=== PATIENT | female | born 1975 | race Caucasian/White ===

== ENCOUNTER 2016-09-28 11:20 | Emergency (ER) | payer BC ==
[~2016-09-28] VITALS: Ht 172.7 cm; Wt 59.0 kg
[2016-09-28] MEDS ORDERED: PRED20TA PO (12:33)
[2016-09-28] MEDS ORDERED: DOXY100T9 PO (12:33)
--- NOTE | 2016-09-28 12:36 | PHYS DOC ---
General Chief Complaint: SORE THROAT Stated Complaint: SORE THROAT Time Seen by MD: 11:21 Source: patient Exam Limitations: no limitations Problems: History of Present Illness Initial Comments Pt is 41/F to ED c/o sore throat. Pt with sx x 5 days, has sore throat/productive cough--yellow, hoarseness. Taking zithromax past few days no help, no cp/sob/dysphagia/irizarry/n/v/d. Tolerating z-monika well but feels like she's getting worse. No cp/fever/ diaphoresis/sob. Timing/Duration: last week Severity: moderate Location: throat Prearrival Treatment: over the counter meds, prescription meds Modifying Factors: worse with coughing, improves with rest Associated Symptoms: cough, malaise, nasal congestion/drainage, poor solids intake, sore throat, voice change Allergies: Coded Allergies: codeine (Verified Allergy, Severe, Anaphylaxis, 09/28/16) hydromorphone (Verified Allergy, Severe, Rash, 09/28/16) morphine (Verified Allergy, Severe, Rash, 09/28/16) Past Medical History Medical History: no pertinent history Surgical History: cholecystectomy (TL) Social History Smoker: non-smoker Alcohol: none Drugs: none Constitutional: denies chills, denies diaphoresis, denies fever, malaise Eyes: denies blindness, denies blurred vision, denies drainage Ears: denies dizziness, denies pain, denies tinnitus Nose: denies clots, congestion, denies epistaxis Throat: see HPI Respiratory: see HPI, denies shortness of breath, denies wheezing Cardiovascular: denies chest pain, denies palpitations, denies syncope Gastrointestinal: denies diarrhea, denies nausea, denies vomiting Neurological: denies headache, denies numbness, denies paresthesia Physical Exam General Appearance: WD/WN, no apparent distress Eyes: bilateral eye normal inspection, bilateral eye PERRL, bilateral eye EOMI Ears: bilateral ear auricle normal, bilateral ear canal normal, bilateral ear TM normal Nose: normal inspection Mouth/Throat: other (pharynx red w/exudate airway clear) Neck: supple, trachea midline Cardiovascular/Respiratory: normal peripheral pulses, normal breath sounds, no respiratory distress 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 Aggressive hydration with gatorade, water. OTC tylenol and analgesic throat sprays as needed. Listerine gargles after brushing/flossing three times daily. Discontinue zithromax. Rx: doxycycline, prednisone. Take meds with food. Follow up with your doctor in 3-5 days if not better. Return to ED with new or changing symptoms. AILYN MORTON DO September 28, 2016 12:36
[2016-09-28 12:50] VITALS: BP 118/60
== END 2016-09-28 12:55 | disposition home or self-care (01) ==
LOC: ER 11:20
DX: J06.9 Acute upper respiratory infection, unspecified (principal); Z88.5 Allergy status to narcotic agent; Z88.6 Allergy status to analgesic agent
CPT/HCPCS: 87070; 87880; 99283

== ENCOUNTER 2017-08-22 23:19 | Emergency (ER) | payer OTHER ==
[~2017-08-22] VITALS: Ht 172.7 cm; Wt 59.0 kg
[2017-08-22 23:19] VITALS: BP 125/87
[~2017-08-22 23:19] MED LIST: DOXY100T9 PO; PRED20TA PO
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
[2017-08-23] MEDS ORDERED: NAPROXEN 500 MG TABLET PO ONE (01:00)
[2017-08-23] MEDS ORDERED: ACETAMINOPHEN 500 MG TABLET PO ONE (01:00)
--- NOTE | 2017-08-23 07:13 | RAD ---
Cervical spine, 3 views, 08/23/2017: History: Injury No fracture or dislocation is identified. The intervertebral disc spaces are well-maintained. There are mild degenerative changes involving scattered facet joints. The prevertebral soft tissues are unremarkable. IMPRESSION: No acute cervical spine abnormality is detected.
== END 2017-08-23 01:05 | disposition home or self-care (01) ==
LOC: ER 23:19
DX: S13.4XXA Sprain of ligaments of cervical spine, initial encounter (principal); R51 Headache; R07.2 Precordial pain; Z88.5 Allergy status to narcotic agent; W50.1XXA Accidental kick by another person, initial encounter; Y93.89 Activity, other specified; Y99.8 Other external cause status; Y92.89 Other specified places as the place of occurrence of the external cause
CPT/HCPCS: 72040; 99284

== ENCOUNTER → 2018-01-12 | Outpatient (CLI) | payer OTHER ==
[2018-01-12 12:14] LABS: BASO # 0.1 x10^3/uL (0.0-0.2); BASO % 1 % (0-3); EOS # 0.2 x10^3/uL (0.0-0.7); EOS % 3 % (0-3); HEMATOCRIT 37.5 % (36.0-47.0); LYMPH # 2.5 x10^3/uL (1.0-4.8); LYMPH % 37 % (24-48); MEAN CORPUSCULAR HEMOGLOBIN 31 pg (25-35); MEAN CORPUSCULAR HGB CONC 35 g/dL (31-37); MEAN CORPUSCULAR VOLUME 89 fL (79-100); MONO # 0.4 x10^3/uL (0.0-1.1); MONO % 6 % (0-9); NEUT # 3.7 x10^3uL (1.8-7.7); NEUT % 53 % (31-73); PLATELET COUNT 313 x10^3/uL (140-400); RED BLOOD COUNT 4.19 x10^6/uL (3.50-5.40); RED CELL DISTRIBUTION WIDTH 13.2 % (11.5-14.5); WHITE BLOOD COUNT 6.9 x10^3/uL (4.0-11.0)
[2018-01-12 12:32] LABS: ALBUMIN/GLOBULIN RATIO 1.1 (1.0-1.7); CALCIUM 8.8 mg/dL (8.5-10.1); CREATININE 0.7 mg/dL (0.6-1.0); GFR 92.2; POTASSIUM 3.6 mmol/L (3.5-5.1); TOTAL BILIRUBIN 0.2 mg/dL (0.2-1.0); TOTAL PROTEIN 7.6 g/dL (6.4-8.2)
[2018-01-12 12:35] LABS: BILIRUBIN,URINE NEG (NEG); CLARITY,URINE HAZY; COLOR,URINE YELLOW; GLUCOSE,URINE NEG (NEG)
[2018-01-12 12:36] LABS: BACTERIA,URINE FEW /HPF (0-FEW); NITRITE,URINE NEG (NEG); SQUAMOUS EPITHELIAL CELL,UR MOD /LPF; UROBILINOGEN,URINE 0.2 mg/dL (0.2 mg/dL); WBC,URINE OCC /HPF (0-4)
[2018-01-12 13:26] LABS: SEDIMENTATION RATE 15 (0-25)
[2018-01-12 15:38] LABS: FREE T4 1.09 ng/dL (0.76-1.46); THYROID STIM HORMONE (TSH) 2.951 uIU/mL (0.358-3.740)
[2018-01-12 23:08] LABS: RHEUMATOID FACTOR <10.0 IU/mL (0.0-13.9); T3 TOTAL 113 ng/dL (71-180)
[2018-01-13 01:12] LABS: HEMOGLOBIN A1C 4.9 % (4.8-5.6)
== END | disposition home or self-care (01) ==
LOC: LAB 11:17
PROVIDERS: ATTEND Family Medicine
DX: Z00.00 Encounter for general adult medical examination without abnormal findings (principal); E03.9 Hypothyroidism, unspecified; R25.2 Cramp and spasm; Z88.5 Allergy status to narcotic agent; Z88.6 Allergy status to analgesic agent
CPT/HCPCS: 36415; 80053; 80061; 81001; 82306; 82607; 83036; 83735; 84436; 84439; 84443; 84480; 84481; 85025; 85651; 86038; 86431

== ENCOUNTER → 2018-05-20 | Outpatient (CLI) | payer OTHER | END | disposition home or self-care (01) | LOC: LAB 18:53 | PROVIDERS: ATTEND Family Medicine | DX: B96.89 Other specified bacterial agents as the cause of diseases classified elsewhere (principal) | CPT/HCPCS: 36415; 87040; 87045; 87493 ==

== ENCOUNTER 2018-06-25 04:21 | Inpatient (IN) | payer OTHER ==
[~2018-06-25] VITALS: Ht 170.2 cm; Wt 67.4 kg
--- NOTE | 2018-06-25 04:25 | ED.ADGEN ---
Past History Past Medical History: Migraines, Other (ORIANA MERINO MD) Past Medical History IBS, endometriosis (ORIANA MERINO MD) Past Surgical History: Cholecystectomy (ORIANA MERINO MD) Alcohol Use: None Drug Use: None (ORIANA MERINO MD) Adult General Chief Complaint Chief Complaint ".. All sudden I got this really sharp pain.. here under my Lt chest... It hurts to breath.. 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 chest and Lt. upper abd. pain. Pain came on acutely. Deep breaths and movement make the pain worse. Pt. has history of IBS ,Migraines, endometriosis .. Pt. reports she been having normal stools. Pt. has just completed her period. No hx of kidney stones, PE, DVT or clotting disorder. Pt. denies any trauma. Patient denies any intake of bad food; family ate the same dinner and no one else is ill. . Patient denies any travel. Patient currently being worked up for rheumatological auto immune disorder by at primary. Pt. recently having episodic problems with dysphagia, Rt. facial numbness and Rt. body numbness. . Pt. currently actively vomiting. Pt. has been under a lot of stress recently, grandfather ,, dad recently increased health problems. Pt. follow s at Dr. Schaefer office. (ORIANA MERINO MD) Review of Systems Review of Systems Constitutional: Denies fever or chills [] Eyes: Denies change in visual acuity, redness, or eye pain [] HENT: Denies nasal congestion or sore throat [] Respiratory: Denies cough or shortness of breath [] Cardiovascular: No additional information not addressed in HPI [] GI: Complaints of Lt. upper abdominal pain, nausea, vomiting,. Denies bloody stools or diarrhea [] : Denies dysuria or hematuria [] Musculoskeletal: Denies back pain or joint pain [] Integument: Denies rash or skin lesions [] Neurologic: Denies headache, focal weakness or sensory changes [] Endocrine: Denies polyuria or polydipsia [] All other systems were reviewed and found to be within normal limits, except as documented in this note. (ORIANA MERINO MD) Family History Family History Mother diagnosis of MS in age 40's (ORIANA MERINO MD) Current Medications Current Medications Current Medications Medications (Trade) Dose Ordered Sig/David Start Time Stop Time Status Last Admin Dose Admin Famotidine (Pepcid Vial) 20 mg 1X ONCE 06/25/18 04:45 06/25/18 05:45 DC 06/25/18 05:05 20 MG Fentanyl Citrate (Fentanyl 2ml Vial) 25 mcg PRN Q15MIN PRN 06/25/18 04:45 06/26/18 04:44 06/25/18 06:08 25 MCG Iohexol (Omnipaque 350 Mg/ml) 100 ml 1X ONCE 06/25/18 07:30 06/25/18 07:31 DC Ketorolac Tromethamine (Toradol 30mg Vial) 30 mg 1X ONCE 06/25/18 04:45 06/25/18 05:46 DC 06/25/18 05:04 30 MG Lactated Ringer's 1,000 ml @ 1,000 mls/hr Q1H 06/25/18 04:33 06/25/18 05:45 DC 06/25/18 05:03 1,000 MLS/HR Magnesium Sulfate 50 ml @ 25 mls/hr 1X ONCE 06/25/18 05:45 06/25/18 07:44 DC 06/25/18 05:57 25 MLS/HR Ondansetron HCl (Zofran Odt) 8 mg 1X ONCE 06/25/18 04:45 06/25/18 05:16 DC Ondansetron HCl (Zofran) 4 mg PRN Q4HRS PRN 06/25/18 09:00 06/26/18 08:59 UNV Potassium Chloride/Sodium Chloride 1,000 ml @ 200 mls/hr 1X ONCE 06/25/18 05:45 06/25/18 10:44 06/25/18 05:57 200 MLS/HR Prochlorperazine Edisylate (Compazine) 10 mg 1X ONCE 06/25/18 07:30 06/25/18 07:31 DC 06/25/18 07:29 10 MG Sodium Chloride 1,000 ml @ 200 mls/hr Q5H 06/25/18 08:50 06/26/18 08:49 UNV (KEZIA MELTON MD) Allergies Allergies Allergies Coded Allergies Type Severity Reaction Last Updated Verified codeine Allergy Severe Anaphylaxis 09/28/16 Yes hydromorphone Allergy Severe Rash 09/28/16 Yes morphine Allergy Severe Rash 09/28/16 Yes (KEZIA MELTON MD) Physical Exam Physical Exam Constitutional: Well developed, well nourished, in acute distress, non-toxic appearance. [] HENT: Normocephalic, atraumatic, bilateral external ears normal, oropharynx moist, no oral exudates, nose normal. [] Eyes: PERRLA, EOMI, conjunctiva normal, no discharge. Glasses. Neck: Normal range of motion, no tenderness, supple, no stridor. [] Cardiovascular:Tachycardia Heart rate regular rhythm, no murmur [] Lungs & Thorax: Bilateral breath sounds equal apexes on auscultation []. Abdomen: Bowel sounds hyperactive, soft, Lt upper tenderness, Liver edge Rt., no pulsatile masses. [] Actively vomiting. Old scars. Mild rebound to Lt. upper quadrant. Skin: Warm, dry, no erythema, no rash. [] Back: No tenderness, no CVA tenderness. [] Extremities: No tenderness, no cyanosis, no clubbing, ROM intact, no edema. [] Neurologic: Alert and oriented X 3, normal motor function, normal sensory function, no focal deficits noted. [] Psychologic: Affect anxious, judgement normal, mood normal. [] (ORIANA MERINO MD) Current Patient Data Vital Signs Vital Signs Date Time Temp Pulse Resp B/P (MAP) Pulse Ox O2 Delivery O2 Flow Rate FiO2 06/25/18 06:31 18 Room Air 06/25/18 06:27 100 137/80 (99) 97 06/25/18 04:36 98.5 (KEZIA MELTON MD) Lab Results Laboratory Tests Test 06/25/18 04:50 06/25/18 04:59 06/25/18 05:00 06/25/18 06:25 Urine Collection Type U cath Urine Color [place] Urine Clarity Clear Urine pH 6.0 Urine Specific [place] 1.025 Urine Protein Trace (NEG-TRACE) Urine Glucose (UA) Neg mg/dL (NEG) Urine Ketones (Stick) 15 mg/dL (NEG) Urine Blood Mod (NEG) Urine Nitrite Neg (NEG) Urine Bilirubin Neg (NEG) Urine Urobilinogen Dipstick 0.2 mg/dL (0.2 mg/dL) Urine Leukocyte Esterase Neg (NEG) Urine RBC 6-10 /HPF (0-2) Urine WBC 0 /HPF (0-4) Urine Squamous Epithelial Cells Few /LPF Urine Bacteria 0 /HPF (0-FEW) Urine Mucus Marked /LPF POC Urine HCG, Qualitative hcg negative (Negative) White Blood Count 20.0 x10^3/uL (4.0-11.0) H Red Blood Count 4.54 x10^6/uL (3.50-5.40) Hemoglobin 13.3 g/dL (12.0-15.5) Hematocrit 40.4 % (36.0-47.0) Mean Corpuscular Volume 89 fL (79-100) Mean Corpuscular Hemoglobin 29 pg (25-35) Mean Corpuscular Hemoglobin Concent 33 g/dL (31-37) Red Cell Distribution Width 13.2 % (11.5-14.5) Platelet Count 355 x10^3/uL (140-400) Neutrophils (%) (Auto) 80 % (31-73) H Lymphocytes (%) (Auto) 11 % (24-48) L Monocytes (%) (Auto) 8 % (0-9) Eosinophils (%) (Auto) 1 % (0-3) Basophils (%) (Auto) 0 % (0-3) Neutrophils # (Auto) 16.0 x10^3uL (1.8-7.7) H Lymphocytes # (Auto) 2.2 x10^3/uL (1.0-4.8) Monocytes # (Auto) 1.6 x10^3/uL (0.0-1.1) H Eosinophils # (Auto) 0.2 x10^3/uL (0.0-0.7) Basophils # (Auto) 0.1 x10^3/uL (0.0-0.2) Segmented Neutrophils % 70 % (35-66) H Band Neutrophils % 4 % (0-9) Lymphocytes % 16 % (24-48) L Atypical Lymphocytes % (Manual) 2 % (0-0) H Monocytes % 8 % (0-10) Eosinophils % 0 % (0-5) Basophils % 0 % (0-3) Platelet Estimate Adequate (ADEQUATE) Erythrocyte Sedimentation Rate 12 (0-25) Maternal Serum HCG Beta Subunit 1 mIU/mL (0-6) Sodium Level 139 mmol/L (136-145) Potassium Level 3.3 mmol/L (3.5-5.1) L Chloride Level 101 mmol/L (98-107) Carbon Dioxide Level 27 mmol/L (21-32) Anion Gap 11 (6-14) Blood Urea Nitrogen 22 mg/dL (7-20) H Creatinine 0.7 mg/dL (0.6-1.0) Estimated GFR (Cockcroft-Gault) 92.2 Glucose Level 96 mg/dL (70-99) Calcium Level 9.0 mg/dL (8.5-10.1) Magnesium Level 1.7 mg/dL (1.8-2.4) L Total Bilirubin 0.4 mg/dL (0.2-1.0) Direct Bilirubin 0.1 mg/dL (0.0-0.2) Aspartate Amino Transferase (AST) 16 U/L (15-37) Alanine Aminotransferase (ALT) 21 U/L (14-59) Alkaline Phosphatase 77 U/L (46-116) Creatine Kinase 65 U/L (26-192) Troponin I Quantitative < 0.017 ng/mL (0-0.055) RX-Evc-S-Type Natriuretic Peptide 13 pg/mL (0-124) Total Protein 8.1 g/dL (6.4-8.2) Albumin 4.3 g/dL (3.4-5.0) Amylase Level 45 U/L (25-115) Lipase 136 U/L (73-393) Prothrombin Time 10.2 SEC (9.4-11.4) Prothrombin Time INR 1.0 (0.9-1.1) D-Dimer (Ana) 3.06 mg/L (0.00-0.50) H (KEZIA MELTON MD) Lab Results Laboratory Tests Test 06/25/18 04:50 06/25/18 04:59 06/25/18 05:00 Urine Collection Type U cath Urine Color [place] Urine Clarity Clear Urine pH 6.0 Urine Specific [place] 1.025 Urine Protein Trace (NEG-TRACE) Urine Glucose (UA) Neg mg/dL (NEG) Urine Ketones (Stick) 15 mg/dL (NEG) Urine Blood Mod (NEG) Urine Nitrite Neg (NEG) Urine Bilirubin Neg (NEG) Urine Urobilinogen Dipstick 0.2 mg/dL (0.2 mg/dL) Urine Leukocyte Esterase Neg (NEG) Urine RBC 6-10 /HPF (0-2) Urine WBC 0 /HPF (0-4) Urine Squamous Epithelial Cells Few /LPF Urine Bacteria 0 /HPF (0-FEW) Urine Mucus Marked /LPF POC Urine HCG, Qualitative hcg negative (Negative) White Blood Count 20.0 x10^3/uL (4.0-11.0) H Red Blood Count 4.54 x10^6/uL (3.50-5.40) Hemoglobin 13.3 g/dL (12.0-15.5) Hematocrit 40.4 % (36.0-47.0) Mean Corpuscular Volume 89 fL (79-100) Mean Corpuscular Hemoglobin 29 pg (25-35) Mean Corpuscular Hemoglobin Concent 33 g/dL (31-37) Red Cell Distribution Width 13.2 % (11.5-14.5) Platelet Count 355 x10^3/uL (140-400) Neutrophils (%) (Auto) 80 % (31-73) H Lymphocytes (%) (Auto) 11 % (24-48) L Monocytes (%) (Auto) 8 % (0-9) Eosinophils (%) (Auto) 1 % (0-3) Basophils (%) (Auto) 0 % (0-3) Neutrophils # (Auto) 16.0 x10^3uL (1.8-7.7) H Lymphocytes # (Auto) 2.2 x10^3/uL (1.0-4.8) Monocytes # (Auto) 1.6 x10^3/uL (0.0-1.1) H Eosinophils # (Auto) 0.2 x10^3/uL (0.0-0.7) Basophils # (Auto) 0.1 x10^3/uL (0.0-0.2) Platelet Estimate Pending Maternal Serum HCG Beta Subunit 1 mIU/mL (0-6) Sodium Level 139 mmol/L (136-145) Potassium Level 3.3 mmol/L (3.5-5.1) L Chloride Level 101 mmol/L (98-107) Carbon Dioxide Level 27 mmol/L (21-32) Anion Gap 11 (6-14) Blood Urea Nitrogen 22 mg/dL (7-20) H Creatinine 0.7 mg/dL (0.6-1.0) Estimated GFR (Cockcroft-Gault) 92.2 Glucose Level 96 mg/dL (70-99) Calcium Level 9.0 mg/dL (8.5-10.1) Magnesium Level 1.7 mg/dL (1.8-2.4) L Total Bilirubin 0.4 mg/dL (0.2-1.0) Direct Bilirubin 0.1 mg/dL (0.0-0.2) Aspartate Amino Transferase (AST) 16 U/L (15-37) Alanine Aminotransferase (ALT) 21 U/L (14-59) Alkaline Phosphatase 77 U/L (46-116) Creatine Kinase 65 U/L (26-192) Troponin I Quantitative < 0.017 ng/mL (0-0.055) IZ-Jvw-H-Type Natriuretic Peptide 13 pg/mL (0-124) Total Protein 8.1 g/dL (6.4-8.2) Albumin 4.3 g/dL (3.4-5.0) Amylase Level 45 U/L (25-115) Lipase 136 U/L (73-393) (ORIANA MERINO MD) EKG EKG My interpretation EKG shows a sinus rhythm at 98 bpm. No acute findings of STEMI with contralateral changes[] (ORIANA MERINO MD) Radiology/Procedures Radiology/Procedures My interpretation of chest x-ray and acute abdomen- Limited No Radiograph screen. No obvious acute cardiopulmonary findings. No free air under the diaphragm. Abdomen film[] shows a nonobstructive bowel gas pattern. (ORIANA MERINO MD) Course & Med Decision Making Course & Med Decision Making Pertinent Labs and Imaging studies reviewed. (See chart for details) Pt. symptoms improved after meds. Coags are are hemolyzed per lab. No one from lab will be available until after 0600 hrs. to re-draw labs. Check out to Dr. Melton at 0604. She will make disposition on pt. [] (ORIANA MERINO MD) Course & Med Decision Making Patient care transferred to ct at [address] Merino. Patient had episodes of nausea and vomiting and diarrhea with severe left upper quadrant pain since 1 AM. She had white count of more than 20,000 and d-dimer of>3. CK jaw of chest abdomen pelvis did not show acute PE. Optimal evaluation. CT showed acute colitis and enteritis. Plan to admit patient with diagnosis of acute gastroenteritis. Dr. Potter accepted admission at 0855. Patient was informed about test results and plan of admission. (KEZIA MELTON MD) Final Impression Final Impression 1. Abdomen Pain[]Lt.upper 2. Chest Pain Lt. lower 3. Nausea and Vomiting 4. Leukocytosis 20. 5. Hypomagnesium 1.7 6. Hypokalemia 3.3 (ORIANA MERINO MD) Dragon Disclaimer Dragon Disclaimer This electronic medical record was generated, in whole or in part, using a voice recognition dictation system. (ORIANA MERINO MD) Departure Departure: Impression: Primary Impression: Acute gastroenteritis Additional Impressions: Left upper quadrant pain Leukocytosis Elevated d-dimer Hypokalemia Disposition: ADMITTED INPATIENT (at 0850) Admitting Physician: Ventura Potter (accepted admission at 0855) (KEZIA MELTON MD) Condition: IMPROVED ORIANA MERINO MD Jun 25, 2018 04:25 KEZIA MELTON MD Jun 25, 2018 06:38
[2018-06-25] MEDS ORDERED: IV RINGERS SOLUTION,LACTATED 1,000 ML IV SCH (04:33)
[2018-06-25] MEDS ORDERED: KETOROLAC 30 MG/ML VIAL. ONE (04:41)
[2018-06-25] MEDS ORDERED: ONDANSETRON PF 4 MG/2 ML VIAL. ONE (04:42)
[2018-06-25] MEDS ORDERED: FAMOTIDINE 20 MG/2 ML VIAL ONE (04:42)
[2018-06-25] MEDS ORDERED: ONDANSETRON ODT 4 MG TAB.RAPDIS PO ONE (04:45)
[2018-06-25] MEDS ORDERED: FAMOTIDINE 20 MG/2 ML VIAL IVP ONE (04:45)
[2018-06-25] MEDS ORDERED: KETOROLAC 30 MG/ML VIAL. IV ONE (04:45)
[2018-06-25 05:14] LABS: BASO # 0.1 x10^3/uL (0.0-0.2); BASO % 0 % (0-3); EOS # 0.2 x10^3/uL (0.0-0.7); EOS % 1 % (0-3); HEMATOCRIT 40.4 % (36.0-47.0); HEMOGLOBIN 13.3 g/dL (12.0-15.5); LYMPH # 2.2 x10^3/uL (1.0-4.8); LYMPH % 11 % (24-48); MEAN CORPUSCULAR HEMOGLOBIN 29 pg (25-35); MEAN CORPUSCULAR HGB CONC 33 g/dL (31-37); MEAN CORPUSCULAR VOLUME 89 fL (79-100); MONO # 1.6 x10^3/uL (0.0-1.1); MONO % 8 % (0-9); NEUT % 80 % (31-73); PLATELET COUNT 355 x10^3/uL (140-400); RED BLOOD COUNT 4.54 x10^6/uL (3.50-5.40); RED CELL DISTRIBUTION WIDTH 13.2 % (11.5-14.5)
[2018-06-25] MEDS ORDERED: ONDANSETRON PF 4 MG/2 ML VIAL. IV ONE (05:30)
[2018-06-25 05:31] LABS: BACTERIA,URINE 0 /HPF (0-FEW); BILIRUBIN,URINE NEG (NEG); CLARITY,URINE CLEAR; COLOR,URINE AMBER; GLUCOSE,URINE NEG (NEG); NITRITE,URINE NEG (NEG); SQUAMOUS EPITHELIAL CELL,UR FEW /LPF; UROBILINOGEN,URINE 0.2 mg/dL (0.2 mg/dL); WBC,URINE 0 /HPF (0-4)
[2018-06-25 05:34] LABS: ALBUMIN 4.3 g/dL (3.4-5.0); CREATININE 0.7 mg/dL (0.6-1.0); DIRECT BILIRUBIN 0.1 mg/dL (0.0-0.2); GFR 92.2; MAGNESIUM 1.7 mg/dL (1.8-2.4); POTASSIUM 3.3 mmol/L (3.5-5.1); TOTAL BILIRUBIN 0.4 mg/dL (0.2-1.0); TOTAL PROTEIN 8.1 g/dL (6.4-8.2)
[2018-06-25] MEDS ORDERED: MAGNESIUM SULFATE 2GM 50 ML IV ONE (05:45)
[2018-06-25] MEDS ORDERED: POTASSIUM CL 20MEQ IN 0.9%NACL 1,000 ML IV ONE (05:45)
[2018-06-25 06:53] LABS: % ATYL 2 % (0-0); % BANDS 4 % (0-9); % BASOS 0 % (0-3); % EOS 0 % (0-5); % LYMPHS 16 % (24-48); % MONOS 8 % (0-10); % SEGS 70 % (35-66); PLT ESTIMATE ADEQUATE (ADEQUATE)
[2018-06-25] MEDS ORDERED: PROCHLORPERAZINE 10 MG/2 ML VIAL. IV ONE (07:30)
[2018-06-25] MEDS ORDERED: IOHEXOL 350 MG/ML 100 ML VIAL. IV ONE (07:30)
--- NOTE | 2018-06-25 08:17 | RAD ---
PQRS Compliance statement: One or more of the following individualized dose reduction techniques were utilized for this examination: 1. Automated exposure control. 2. Adjustment of the mA and/or kV according to patient size. 3. Use of iterative reconstruction technique. Indication:Severe left upper quadrant and left chest pain. TECHNIQUE: CT angiogram chest and abdomen and pelvis in portal venous phase with IV contrast with multiplanar MIP reformats. COMPARISON: None FINDINGS: CT chest: Slightly suboptimal PE study due to contrast bolus timing. No central or proximal filling defects in the pulmonary arteries. Evaluation of subsegmental pulmonary arteries is limited. Heart is normal in size. No pericardial or pleural effusion. No chest adenopathy. Central airways are patent. Lungs are clear. No suspicious bony lesion. CT abdomen pelvis: Liver, spleen, pancreas, adrenals and kidneys are within normal limits. Status post cholecystectomy. No free pelvic fluid or ascites. Diffuse fluid-filled small and large bowel is seen with mucosal enhancement and scattered short segments demonstrating bowel wall thickening. Hyperemia is seen in the mesenteric vessels. No bowel obstruction. Anteverted uterus. Urinary bladder is within normal limits. No pneumoperitoneum or pneumatosis intestinalis. No suspicious bony lesion. IMPRESSION: 1. Slight suboptimal PE study due to contrast bolus timing. No central or segmental PE. Evaluation of subsegmental arteries is limited. No pneumonia or imaging evidence of pulmonary infarct. 2. Findings of enteritis and colitis. Electronically signed by: Melquiades Montoya DO (06/25/2018 8:12 AM) [facility]
--- NOTE | 2018-06-25 08:19 | RAD ---
CHEST PA LATERAL, ABDOMEN SUPINE UPRIGHT CLINICAL INDICATION: Left upper abdominal pain. COMPARISON: None FINDINGS: Heart is normal in size. Lungs are clear. No pneumothorax or pleural effusion. Visualized bony thorax within normal limits. IMPRESSION: No acute pulmonary process. INDICATION: Left upper abdominal pain. TECHNIQUE: 2 views of the abdomen COMPARISON: None FINDINGS: Visualized lung bases are clear. No abnormally dilated bowel loops. Right upper quadrant clips suggesting cholecystectomy. Visualized bones are within normal limits. IMPRESSION: No acute radiographic findings. Electronically signed by: Melquiades Montoya DO (06/25/2018 8:14 AM) [facility]
[2018-06-25] MEDS ORDERED: ONDANSETRON PF 4 MG/2 ML VIAL. IV PRN (09:00)
[2018-06-25 11:17] VITALS: BP 117/79
[2018-06-25] MEDS: IV NORMAL SALINE 1,000ML 1,000 ML IV SCH ×3 (11:55→21:06)
[2018-06-25] MEDS ORDERED: MELATONIN 3 MG TABLET PO PRN (12:45)
[2018-06-25 16:00] VITALS: BP 95/60
[2018-06-25] MEDS ORDERED: ELECTROLYTE (NON-ICU) PROTOCOL MC PRN (18:30)
[2018-06-25 19:05] VITALS: BP 104/79
[2018-06-25] MEDS: LOPERAMIDE 2 MG CAPSULE PO PRN (20:59)
[2018-06-25] MEDS: diphenhydrAMINE HCL 25 MG CAPSULE PO SCH (20:59)
[2018-06-25] MEDS: KETOROLAC 30 MG/ML VIAL. IV PRN (21:00)
[2018-06-25 23:29] VITALS: BP 110/76
--- NOTE | 2018-06-26 01:25 | EKG ---
[address] [address] Test Date: 2018-06-25 Test Time: 05:14:39 Pat Name: LAQUITA AGUILERA Department: Room: 120 A Gender: F Bioinformatics Analyst: MARGARET : [id number] Requested By: ORIANA CORNELIUS Order Number: [id number] Reading MD: Nilton Parmar MD Measurements Intervals [place] Rate: 98 P: 56 IN: 116 QRS: 22 QRSD: 66 T: 15 QT: 338 QTc: 433 Interpretive Statements SINUS RHYTHM Electronically Signed On 06-29-2018 10:21:42 WRECKING SUPERVISOR by Nilton Parmar MD
[2018-06-26 05:30] VITALS: BP 94/60
[2018-06-26 06:24] LABS: CALCIUM 7.8 mg/dL (8.5-10.1); CREATININE 0.6 mg/dL (0.6-1.0); GFR 110.2; POTASSIUM 3.4 mmol/L (3.5-5.1)
[2018-06-26] MEDS: IV NORMAL SALINE 1,000ML 1,000 ML IV SCH ×2 (07:02→18:30)
[2018-06-26] MEDS: KETOROLAC 30 MG/ML VIAL. IV PRN (08:24)
[2018-06-26 08:57] LABS: BASO % 0 % (0-3); EOS # 0.1 x10^3/uL (0.0-0.7); EOS % 1 % (0-3); HEMATOCRIT 33.2 % (36.0-47.0); HEMOGLOBIN 11.5 g/dL (12.0-15.5); LYMPH # 2.5 x10^3/uL (1.0-4.8); LYMPH % 33 % (24-48); MEAN CORPUSCULAR HEMOGLOBIN 31 pg (25-35); MEAN CORPUSCULAR HGB CONC 35 g/dL (31-37); MEAN CORPUSCULAR VOLUME 89 fL (79-100); MONO # 0.7 x10^3/uL (0.0-1.1); MONO % 10 % (0-9); NEUT # 4.3 x10^3uL (1.8-7.7); NEUT % 56 % (31-73); PLATELET COUNT 262 x10^3/uL (140-400); RED BLOOD COUNT 3.73 x10^6/uL (3.50-5.40); RED CELL DISTRIBUTION WIDTH 13.3 % (11.5-14.5); WHITE BLOOD COUNT 7.7 x10^3/uL (4.0-11.0)
--- NOTE | 2018-06-26 09:46 | HP ---
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 She was unable to keep anything down, had sufficient extremely loose watery diarrhea, numerous times to count. The patient also notes that she has been having problems with dehydration. The patient was seen in the Emergency Room, her white count was over 20,000. She had some atypical lymphocytes and the like. Her potassium was slightly low at 3.3. She was admitted for rehydration and further evaluation. Her D-dimer was also elevated and beta-hCG was negative. In any case, because of her dehydration DICTATION ENDS HERE BENITEZ WILCOX MD DR: RIVERA/kate JOB#: [id number] / [id number]
[2018-06-26] MEDS: LOPERAMIDE 2 MG CAPSULE PO PRN (09:48)
[2018-06-26] MEDS ORDERED: ONDANSETRON PF 4 MG/2 ML VIAL. IV PRN (10:45)
[2018-06-26] MEDS: CIPROFLOXACIN 400MG PREMIX 200 ML IV SCH ×2 (10:52→20:02)
--- NOTE | 2018-06-26 11:10 | HP ---
ADMIT DATE: 06/25/2018 HISTORY OF PRESENT ILLNESS: The patient is a 42-year-old female patient who was admitted to the Emergency Room with a complaint of pain in her left side of the chest. She came also with pain that is worse with taking a deep breath. According to her, she woke up around 1:00 on Tuesday morning with cramping abdominal pain and started having recurrent bouts of nausea and vomiting followed by diarrhea. She also complained of left chest and left upper quadrant abdominal pain with deep breath and movement makes the pain worse. She does have a history of IBS, migraine, and endometriosis. She apparently took her last meal around 9:00 on Tuesday evening together with her 3 children and and started having this cramping abdominal pain around 1:00 in the morning. She was extensively investigated in the Emergency Room. Her lab work showed that she has marked leukocytosis with a white cell count of 20,000. However, her chemistry showed also she has hypokalemia and her D-dimer was extremely high at 3.06 mg and therefore, she underwent CT angio of the chest, abdomen and pelvis, which showed that the patient has slight suboptimal PE study due to contrast bolus timing. No central or segmental pulmonary emboli. Evaluation of subsegmental arteries is limited. No pneumonia or imaging evidence of pulmonary infarct. She has finding on her abdomen consistent with enteritis and colitis. She was admitted and continued on IV fluid, IV antiemetic and pain medication. PAST MEDICAL HISTORY: Significant for migraine headaches, irritable bowel syndrome, and endometriosis. PAST SURGICAL HISTORY: Significant for cholecystectomy and tubal ligation. ALLERGIES: She is allergic to CODEINE, HYDROMORPHONE, and MORPHINE. MEDICATIONS: She is on doxycycline hyclate 100 mg p.o. b.i.d. and prednisone 20 mg p.o. b.i.d. She is also on sumatriptan. FAMILY HISTORY: She is the only child. Her father is alive at the age of 64 and has diabetes. Mother is alive at the age of 64 and healthy. SOCIAL HISTORY: She is , has 3 kids. She does not smoke, drink alcohol, or use any recreational drugs. 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 REVIEW OF SYSTEMS: As per history of present illness. PHYSICAL EXAMINATION: GENERAL: On arrival to the Emergency Room, she looked somewhat pale, but no jaundice, cyanosis or thyromegaly. No jugular venous distention. No limb edema. VITAL SIGNS: Her heart rate was 118, blood pressure was 125/80, temperature was 98.5, respiratory rate 24 and oxygen saturation was 97% on room air. HEAD, EYES, EARS, NOSE, AND THROAT: Showed normocephalic, atraumatic. NECK: Supple. HEART: Showed normal first and second heart sounds with no gallop, rub or murmur. CHEST: Clear to auscultation. No crepitation or rhonchi. ABDOMEN: Distended, soft, nontender. No guarding or rigidity. No organomegaly. All hernial orifices intact. Bowel sounds normal. NEUROLOGIC: She was awake, alert, responding appropriately. All cranial nerves intact. She moves extremities without difficulty. She ambulates without assistance or assistive devices. LABORATORY DATA: Her lab work showed a white cell count of 20,000, hemoglobin 13.3, hematocrit 40.4, MCV 89, and platelet count of 355,000 with manual differential showed 80% polymorphs, 11% lymphocytes, and 8% monocytes. Her sedimentation rate was only 12 mm per hour. Her chemistry showed a serum sodium 139, potassium 3.3, chloride 101, bicarbonate 27, anion gap of 11, BUN 22, creatinine 0.7. Estimated GFR was 92 mL per minute. Her glucose was 96, calcium was 9, magnesium was 1.7. Total bilirubin, AST, ALT, alkaline phosphatase were normal. Total protein was 8.1, albumin was 4.3. Her lipase was 136, amylase was 45. TSH was 2.432. Her prothrombin time was 10.2, INR of 1. D-dimer of 3.06. Urinalysis essentially unremarkable. Her serum test was negative. The patient has had a chest x-ray, which basically showed no acute radiographic finding. X-ray of the abdomen also showed no abnormally dilated bowel loops. Her right upper quadrant clips suggesting cholecystectomy. Visualized bones are within normal limits. She did have a CT angio of the chest, abdomen and pelvis which basically showed that the liver, spleen, pancreas, adrenals, and kidneys are within normal limits status post cholecystectomy. No free pelvic fluid or ascites. Diffuse fluid filled small and large bowel seen with mucosal enhancement and scattered short segment demonstrating bowel wall thickening. Hyperemia is seen in the mesenteric vessels. No bowel obstruction. Anteverted uterus. Urinary bladder is within normal limits. No pneumoperitoneum or pneumatosis intestinalis or suspicious for any lesion. The impression is that the patient has slightly suboptimal PE study due to contrast bolus timing. No central or segmental PE. Evaluation of subsegmental arteries is limited. No pneumonia or imaging evidence of pulmonary infarct. Findings of enteritis and colitis. The patient was admitted and continued on IV fluid, ketorolac, and antiemetic. MATTHEW HERRERA MD DR: BRYN/kate JOB#: [id number] / [id number]
[2018-06-26 11:11] VITALS: BP 100/67
--- NOTE | 2018-06-26 12:06 | PN ---
DATE: 06/26/2018 SUBJECTIVE: The patient is sitting slightly propped up in bed, stating that her symptom has recurred. She has had multiple episodes of vomiting and also has had multiple episodes of diarrhea this morning, although her pain is much abdominal pain. Her chest pain has largely subsided. Denied any fever, chills or rigors. PHYSICAL EXAMINATION: GENERAL: When I examined her this morning, she looked pale, but no jaundice, cyanosis, or thyromegaly. No jugular venous distension. No limb edema. VITAL SIGNS: Her heart rate was 76, blood pressure was 94/60, temperature was 98.2, respiratory rate was 16, and oxygen saturation was 98% on room air. HEAD, EYES, EARS, NOSE AND THROAT: Showed normocephalic, atraumatic. NECK: Supple. HEART: Showed normal first and second heart sounds. No gallop, rub or murmur. CHEST: Clear to auscultation. No crepitation or rhonchi. ABDOMEN: Distended, soft, nontender. No guarding or rigidity. No organomegaly. All hernial orifices are intact. Bowel sounds normal. NEUROLOGIC: She was awake, alert, responding appropriately. All her cranial nerves are intact. She moves extremities without difficulty. Her intake was 3500, no output was recorded. LABORATORY DATA: As of this morning showed a white cell count is down to 7700, hemoglobin 11.5, hematocrit 33, MCV 89 and platelet count 262,000. Her chemistry showed a serum sodium 141, potassium 3.4, chloride 109, bicarbonate 24, anion gap of 8, BUN 8, estimated GFR was 110, glucose was 83 and calcium was 7.8. Her prothrombin time was 10.2, INR of 1, aPTT was 3.06. ASSESSMENT: Acute gastroenteritis. PLAN: My plan is to continue the IV fluid, continue with antiemetic. I will start her also on Cipro since stool for C. diff as well as culture and sensitivity looking for salmonella, Shigella and Campylobacter. I will start her on ciprofloxacin as well as Flagyl. MATTHEW HERRERA MD DR: BRYN/kate JOB#: [id number] / [id number]
[2018-06-26 12:10] LABS: ANTI-DS DNA <1 IU/mL (0-9)
[2018-06-26] MEDS ORDERED: traMADol 50 MG TABLET PO PRN (13:15)
[2018-06-26 15:37] VITALS: BP 113/73
[2018-06-26] MEDS: diphenhydrAMINE HCL 25 MG CAPSULE PO SCH (18:41)
[2018-06-26 19:09] LABS: ANA INTERP Positive (.)
[2018-06-26 19:42] VITALS: BP 117/70
[2018-06-26 20:08] LABS: CYCLIC CITRULLIN PEP AB 4 units (0-19)
[2018-06-26 22:30] VITALS: BP 98/65
[2018-06-27] MEDS: KETOROLAC 30 MG/ML VIAL. IV PRN (01:55)
[2018-06-27] MEDS ORDERED: ACETAMINOPHEN 325 MG TABLET PO PRN (05:30)
[2018-06-27] MEDS: IV NORMAL SALINE 1,000ML 1,000 ML IV SCH (05:37)
[2018-06-27 05:59] VITALS: BP 98/68
[2018-06-27 06:23] LABS: BASO # 0.1 x10^3/uL (0.0-0.2); BASO % 1 % (0-3); EOS # 0.3 x10^3/uL (0.0-0.7); EOS % 4 % (0-3); HEMATOCRIT 30.4 % (36.0-47.0); HEMOGLOBIN 10.5 g/dL (12.0-15.5); LYMPH % 41 % (24-48); MEAN CORPUSCULAR HEMOGLOBIN 31 pg (25-35); MEAN CORPUSCULAR HGB CONC 34 g/dL (31-37); MEAN CORPUSCULAR VOLUME 90 fL (79-100); MONO # 0.7 x10^3/uL (0.0-1.1); MONO % 10 % (0-9); NEUT # 3.3 x10^3uL (1.8-7.7); NEUT % 45 % (31-73); PLATELET COUNT 239 x10^3/uL (140-400); RED BLOOD COUNT 3.39 x10^6/uL (3.50-5.40); RED CELL DISTRIBUTION WIDTH 13.6 % (11.5-14.5); WHITE BLOOD COUNT 7.4 x10^3/uL (4.0-11.0)
[2018-06-27 06:42] LABS: ALBUMIN 2.8 g/dL (3.4-5.0); CALCIUM 7.4 mg/dL (8.5-10.1); CREATININE 0.7 mg/dL (0.6-1.0); GFR 92.2; POTASSIUM 3.6 mmol/L (3.5-5.1); TOTAL BILIRUBIN 0.2 mg/dL (0.2-1.0); TOTAL PROTEIN 5.6 g/dL (6.4-8.2)
[2018-06-27] MEDS: CIPROFLOXACIN 400MG PREMIX 200 ML IV SCH (08:16)
[2018-06-27] MEDS: LOPERAMIDE 2 MG CAPSULE PO PRN (10:21)
[2018-06-27] MEDS ORDERED: METR500T PO (10:51)
[2018-06-27] MEDS ORDERED: CIPR500T PO (10:51)
[2018-06-27 10:52] VITALS: BP 90/55
[2018-06-27] MEDS ORDERED: LOPE2CAP PO (10:52)
--- NOTE | 2018-06-27 13:15 | DS ---
DATE OF DISCHARGE: 06/27/2018 SUBJECTIVE: The patient is resting slightly propped up in bed, in no apparent distress. Awake, alert. On questioning her, she said she has no abdominal pain, no nausea or vomiting. She has tolerated her regular diet this morning, although she continued to have episodes of diarrhea every 2 hours. Denied any dizziness, lightheadedness, or vertigo. Denied any chills, rigors, or fever. She expressed her desire to go home. PHYSICAL EXAMINATION: GENERAL: When I examined her, she looked somewhat pale, but no jaundice, cyanosis, or thyromegaly. No jugular venous distension. No lower limb edema. VITAL SIGNS: His heart rate was 76, blood pressure was 90/55, temperature was 98.2, respiratory rate was 18 and oxygen saturation was 98%. HEAD, EYES, EARS, NOSE AND THROAT: Normocephalic, atraumatic. NECK: Supple. HEART: Showed normal first and second heart sounds. No gallop, rub or murmur. CHEST: Clear to auscultation. No crepitation or rhonchi. ABDOMEN: Distended, soft, nontender. NEUROLOGIC: She is awake, alert, responding appropriately. All cranial nerves are intact. She moves extremities without difficulty. She ambulates without assistance or assistive devices. Her intake over the last 24 hours was 2500. LABORATORY DATA: As of this morning, her white cell count is down to 7400, hemoglobin 10.5, hematocrit 30, MCV 90 and platelet count 239,000 with normal manual differential. His chemistry showed her serum sodium 143, potassium 3.6, chloride 111, bicarbonate 23, anion gap of 9, BUN 6, creatinine 0.7, estimated GFR was 92 mL per minute. Her glucose was 87, calcium was 7.4. Total bilirubin, AST, ALT, alkaline phosphatase were normal. Total protein was 5.6, albumin 2.8. Her amylase was normal at 45. TSH was 2.432. Her prothrombin time was 10.2, INR 1, aPTT was 3.06. Urinalysis was essentially unremarkable. Her stool for C. diff toxins were negative and her Human chorionic gonadotropin beta-subunit was 1. The patient was discharged home to continue on ciprofloxacin 500 mg twice a day for 8 more days, metronidazole for Flagyl 500 mg twice a day for 8 more days and loperamide 2 mg p.o. q.4 hourly as needed. FINAL DISCHARGE DIAGNOSES: Acute gastroenteritis, resolving; bronchial asthma seems to be clinically quiescent, irritable bowel syndrome, migraine headache, and endometriosis. MATTHEW HERRERA MD DR: BRYN/kate JOB#: [id number] / [id number]
[2018-06-27] MEDS ORDERED: LACTOBACILLUS RHAMNOSUS GG 1 CAPSULE. PO SCH (21:00)
== END 2018-06-27 11:22 | disposition home or self-care (01) | DRG 392 ==
LOC: ER 04:21 → 1 SOUTH 11:05
PROVIDERS: ADMIT Internal Medicine; ATTEND Internal Medicine
DX: K52.9 Noninfective gastroenteritis and colitis, unspecified (principal); E86.0 Dehydration; E87.6 Hypokalemia; G43.909 Migraine, unspecified, not intractable, without status migrainosus; J45.909 Unspecified asthma, uncomplicated; Z83.3 Family history of diabetes mellitus; Z90.49 Acquired absence of other specified parts of digestive tract; Z88.5 Allergy status to narcotic agent; Z88.8 Allergy status to other drugs, medicaments and biological substances; N80.9 Endometriosis, unspecified
CPT/HCPCS: 36415; 71046; 71275; 74021; 74174; 80048; 80053; 80076; 81001; 81025; 82150; 82550; 83690; 83735; 83880; 84443; 84484; 84702; 85007; 85025; 85379; 85610; 85651; 86038; 86200; 87045; 87493; 87801; 93005; 96361; 96365; 96366; 96368; 96375; 96376; J0744; J0780; J1885; J2405; J3010; J3475; J3490; J7120; Q0163; 99285-25; J7030

== ENCOUNTER → 2018-07-19 | Outpatient (CLI) | payer OTHER ==
[2018-06-27 10:52] VITALS: BP 90/55
[~2018-07-19] MED LIST changes: +CIPR500T PO; +LOPE2CAP PO; +METR500T PO
--- NOTE | 2018-07-19 13:24 | RAD ---
DATE: 07/19/2018: EXAM: MAMMO PASCUAL SCREENING BILATERAL HISTORY: Routine screening COMPARISON: Baseline study This study was interpreted with the benefit of Computerized Aided Detection (CAD). Breast Density: HETERO The breast parenchyma is heterogenously dense, which could reduce sensitivity of mammography. Breast parenchyma level C. FINDINGS: 2-D and 3-D tomosynthesis imaging was performed in CC and MLO projections. No suspicious breast densities or microcalcifications are seen. Benign-appearing lymph nodes are noted in the right axillary region. IMPRESSION: There is no mammographic evidence of malignancy in either breast. BI-RADS CATEGORY: 2 BENIGN FINDING(S) RECOMMENDED FOLLOW-UP: 12M 12 MONTH FOLLOW-UP PQRS compliance statement: Patient information was entered into a reminder system with a target due date for the next mammogram. Mammography is a sensitive method for finding small breast cancers, but it does not detect them all and is not a substitute for careful clinical examination. A negative mammogram does not negate a clinically suspicious finding and should not result in delay in biopsying a clinically suspicious abnormality. "Our facility is accredited by the [employer] Mammography Program."
== END | disposition home or self-care (01) ==
LOC: MAMMO 09:19
PROVIDERS: ATTEND Family Medicine
DX: Z12.31 Encounter for screening mammogram for malignant neoplasm of breast (principal)
CPT/HCPCS: 77063; 77067

== ENCOUNTER → 2018-10-18 | Outpatient (CLI) | payer OTHER ==
[2018-10-18 04:14] LABS: BASO # 0.1 x10^3/uL (0.0-0.2); BASO % 1 % (0-3); EOS # 0.2 x10^3/uL (0.0-0.7); EOS % 2 % (0-3); HEMATOCRIT 37.2 % (36.0-47.0); HEMOGLOBIN 12.8 g/dL (12.0-15.5); LYMPH # 4.5 x10^3/uL (1.0-4.8); LYMPH % 40 % (24-48); MEAN CORPUSCULAR HEMOGLOBIN 31 pg (25-35); MEAN CORPUSCULAR HGB CONC 35 g/dL (31-37); MEAN CORPUSCULAR VOLUME 89 fL (79-100); MONO # 0.7 x10^3/uL (0.0-1.1); MONO % 6 % (0-9); NEUT # 5.9 x10^3uL (1.8-7.7); NEUT % 52 % (31-73); PLATELET COUNT 340 x10^3/uL (140-400); RED CELL DISTRIBUTION WIDTH 12.9 % (11.5-14.5); WHITE BLOOD COUNT 11.3 x10^3/uL (4.0-11.0)
[2018-10-18 04:16] LABS: ALBUMIN 3.9 g/dL (3.4-5.0); ALBUMIN/GLOBULIN RATIO 1.2 (1.0-1.7); BARBITURATES NEG (NEG); BENZODIAZEPINES NEG (NEG); CALCIUM 8.7 mg/dL (8.5-10.1); CANNABINOIDS NEG (NEG); COCAINE NEG (NEG); CREATININE 0.8 mg/dL (0.6-1.0); GFR 78.7; METHADONE NEG (NEG); OPIATES NEG (NEG); PHENCYCLIDINE NEG (NEG); POTASSIUM 3.4 mmol/L (3.5-5.1); TOTAL BILIRUBIN 0.2 mg/dL (0.2-1.0); TOTAL PROTEIN 7.2 g/dL (6.4-8.2)
[2018-10-18 04:26] LABS: AMPHETAMINE/METHAMPHETAMINE NEG (NEG)
== END | disposition home or self-care (01) ==
LOC: LAB 03:04
PROVIDERS: ATTEND Psychiatry & Neurology Neurology
DX: R20.2 Paresthesia of skin (principal)
CPT/HCPCS: 36415; 80053; 80307; 82550; 82607; 84443; 85025

== ENCOUNTER → 2019-05-28 | Outpatient (CLI) | payer OTHER ==
[~2019-05-28] MED LIST changes: +DOXY-96 PO; -DOXY100T9 PO
[2019-05-29 00:09] LABS: BASO # 0.1 x10^3/uL (0.0-0.2); BASO % 1 % (0-3); EOS # 0.1 x10^3/uL (0.0-0.7); EOS % 1 % (0-3); HEMATOCRIT 39.7 % (36.0-47.0); HEMOGLOBIN 13.4 g/dL (12.0-15.5); LYMPH # 3.7 x10^3/uL (1.0-4.8); LYMPH % 42 % (24-48); MEAN CORPUSCULAR HEMOGLOBIN 30 pg (25-35); MEAN CORPUSCULAR HGB CONC 34 g/dL (31-37); MEAN CORPUSCULAR VOLUME 90 fL (79-100); MONO # 0.5 x10^3/uL (0.0-1.1); MONO % 6 % (0-9); NEUT # 4.5 x10^3uL (1.8-7.7); NEUT % 51 % (31-73); PLATELET COUNT 346 x10^3/uL (140-400); RED BLOOD COUNT 4.44 x10^6/uL (3.50-5.40); RED CELL DISTRIBUTION WIDTH 13.3 % (11.5-14.5); WHITE BLOOD COUNT 8.8 x10^3/uL (4.0-11.0)
[2019-05-29 00:15] LABS: BACTERIA,URINE 0 /HPF (0-FEW); BILIRUBIN,URINE NEG (NEG); CLARITY,URINE CLEAR; COLOR,URINE YELLOW; GLUCOSE,URINE NEG (NEG); NITRITE,URINE NEG (NEG); RBC,URINE OCC /HPF (0-2); SQUAMOUS EPITHELIAL CELL,UR OCC /LPF; UROBILINOGEN,URINE 0.2 mg/dL (0.2 mg/dL); WBC,URINE OCC /HPF (0-4)
[2019-05-29 00:23] LABS: ALBUMIN 3.8 g/dL (3.4-5.0); ALBUMIN/GLOBULIN RATIO 1.2 (1.0-1.7); CALCIUM 8.6 mg/dL (8.5-10.1); CREATININE 0.6 mg/dL (0.6-1.0); GFR 109.6; POTASSIUM 3.3 mmol/L (3.5-5.1); TOTAL BILIRUBIN 0.4 mg/dL (0.2-1.0); TOTAL PROTEIN 7.1 g/dL (6.4-8.2)
[2019-05-29 01:08] LABS: SEDIMENTATION RATE 15 (0-25)
[2019-05-29 13:41] LABS: FREE T4 1.1 ng/dL (0.76-1.46); THYROID STIM HORMONE (TSH) 2.276 uIU/mL (0.358-3.740)
[2019-05-29 18:06] LABS: ESTRADIOL LEVEL 56.4 pg/mL (.)
[2019-05-29 19:07] LABS: FSH 5.5 mIU/mL (.); LUTEINIZING HORMONE 3.1 mIU/mL (.)
[2019-05-31 15:08] LABS: GLIA IGA 3 units (0-19); GLIA IGG 2 units (0-19); TRANSGLUTAMINASE IGA AB <2 U/mL (0-3); TRANSGLUTAMINASE IGG AB <2 U/mL (0-5)
[2019-05-31 19:07] LABS: ANA INTERP Positive (.)
== END | disposition home or self-care (01) ==
LOC: LAB 21:38
PROVIDERS: ATTEND Family Medicine
DX: R19.7 Diarrhea, unspecified (principal); R23.2 Flushing
CPT/HCPCS: 36415; 80053; 81001; 82670; 83001; 83002; 83516; 83690; 84144; 84439; 84443; 85025; 85651; 86038

== ENCOUNTER → 2019-07-01 | Outpatient (CLI) | payer OTHER ==
[2019-07-06 09:08] LABS: TESTOSTERONE FREE 0.08 ng/dL (0.10-0.85); TESTOSTERONE TOTAL 5 ng/dL (8-48)
== END | disposition home or self-care (01) ==
LOC: LAB 11:30
PROVIDERS: ATTEND Obstetrics & Gynecology
DX: L68.0 Hirsutism (principal)
CPT/HCPCS: 36415; 82627; 83498; 84402; 84403

== ENCOUNTER → 2020-05-17 | Outpatient (CLI) | payer OTHER ==
[~2020-05-17] MED LIST changes: +AZIT1PAC9 PO; -CIPR500T PO; +CIPR500T2 PO; +METH4TAB2 PO; +ONDA4TAB12 PO
== END ==
LOC: LAB 11:07
PROVIDERS: ATTEND Internal Medicine Cardiovascular Disease
DX: Z20.828 Contact with and (suspected) exposure to other viral communicable diseases (principal)
CPT/HCPCS: U0003

== ENCOUNTER 2020-06-24 20:13 | Emergency (ER) | payer OTHER ==
[~2020-06-24] VITALS: Ht 170.2 cm; Wt 63.3 kg
[~2020-06-24 20:13] MED LIST changes: -AZIT1PAC9 PO; -METH4TAB2 PO; -ONDA4TAB12 PO
[2020-06-24 20:22] VITALS: BP 143/93
[2020-06-24] MEDS ORDERED: KETOROLAC 60 MG/2 ML VIAL. IM ONE (20:30)
--- NOTE | 2020-06-24 20:30 | PHYS DOC ---
Past History Past Medical History: Migraines, Other Additional Past Medical Histor: endometrosis, auto immune d/o Past Surgical History: Cholecystectomy, Tubal ligation Alcohol Use: None Drug Use: None Adult General Chief Complaint Chief Complaint: HEADACHE HPI HPI Patient is a 44-year-old female complaining of a migraine without aura that is similar to all her other migraines that started last night. Patient states that she took her Imitrex hour ago prior to arrival to the emergency department and it did not help her pain. Patient reports her pain a 5/10 on a 1-10 pain scale. Patient states that the pain is on the right side of her head like all of her other migraine headaches. Patient denies nausea, vomiting, diarrhea, visual changes, neurological changes. Patient states she had a tubal ligation and is n ot . Patient denies any other physical complaints or physical concerns. Review of Systems Review of Systems 14 body systems of review of systems have been reviewed. See HPI for pertinent positives and negative responses, otherwise all other systems are negative, nonpertinent or noncontributory. Allergies Allergies Allergies Coded Allergies Type Severity Reaction Last Updated Verified codeine Allergy Severe Anaphylaxis 06/24/20 Yes hydromorphone Allergy Severe Rash 06/24/20 Yes morphine Allergy Severe Rash 06/24/20 Yes Physical Exam Physical Exam Constitutional: Well developed, well nourished, no acute distress, non-toxic appearance. HENT: Normocephalic, atraumatic, bilateral external ears normal, oropharynx moist, no oral exudates, nose normal. Eyes: PERRLA, EOMI, conjunctiva normal, no discharge. Patient is not photophobic. Neck: Normal range of motion, no tenderness, supple, no stridor. Cardiovascular:Heart rate regular rhythm, no murmur Lungs & Thorax: Bilateral breath sounds clear to auscultation Abdomen: Bowel sounds normal, soft, no tenderness, no masses, no pulsatile masses. Skin: Warm, dry, no erythema, no rash. Back: No tenderness, no CVA tenderness. Extremities: No tenderness, no cyanosis, no clubbing, ROM intact, no edema. Neurologic: Alert and oriented X 3, normal motor function, normal sensory function, no focal deficits noted. Psychologic: Affect normal, judgement normal, mood normal. Current Patient Data Vital Signs Vital Signs Date Time Temp Pulse Resp B/P (MAP) Pulse Ox O2 Delivery O2 Flow Rate FiO2 06/24/20 20:22 98.0 83 18 143/93 (110) 99 EKG EKG [] Radiology/Procedures Radiology/Procedures [] Heart Score Risk Factors: Risk Factors: DM, Current or recent (<one month) smoker, HTN, HLP, family history of CAD, obesity. Risk Scores: Risk Factors: DM, Current or recent (<one month) smoker, HTN, HLP, family history of CAD, obesity. Course & Med Decision Making Course & Med Decision Making Pertinent Labs and Imaging studies reviewed. (See chart for details) 44-year-old female, vital signs reviewed, presents to the emergency department complaining of migraine headache. Patient states this is like all of her other migraines but does not wish to have a CAT scan today. Patient's physical examination was unremarkable. Patient's complaining pain is a 5/10 on a 1-10 pain scale, will give 60 mg IM Toradol. Upon reexamination of the patient, patient states she is getting relief of pain and wishes to go home at this time. Patient gave verbal understanding of discharge home instructions, follow-up with primary care for ongoing headache pains, return to ER precautions or concerns, was discharged home without incident. Patient was given a work excuse. Dragon Disclaimer Dragon Disclaimer This electronic medical record was generated, in whole or in part, using a voice recognition dictation system. Departure Departure: Impression: Primary Impression: Migraine Disposition: 01 DC HOME SELF CARE/HOMELESS Condition: GOOD Referrals: GELA BERNSTEIN (PCP) Patient Instructions: Migraine Headache Additional Instructions: EMERGENCY DEPARTMENT GENERAL DISCHARGE INSTRUCTIONS Thank you for coming to [facility] (ED) today and trusting us with you care. We trust that you had a positivie experience in our Emergency Department. If you wish to speak to the department management, you may call the director at [phone]. YOUR FOLLOW UP INSTRUCTIONS ARE FOLLOWS: 1. Do you have a private Doctor? If you do not have a private doctor, please ask for a resource list of physicians or clinics that may be able to assist you with follow up care. 2. The Emergency Physician has interpreted your x-rays. The X-Ray specialist will also review them. If there is a change in the findings, you will be notified in 48 hours when at all possible. 3. A lab test or culture has been done, your results will be reviewed and you will be notified if you need a change in treatment. ADDITIONAL INSTRUCTIONS AND INFORMATION: 1. Your care today has been supervised by a physician who is specially trained in emergency care. Many problems require more than one evaluation for a complete diagnosis and treatment. We recommend that you schedule your follow up appointment as recommended to ensure complete treatment of you illness or injury. If you are unable to obtain follow up care and continue to have a problem, or if your condition worsens, we recommend that you return to the ED. 2. We are not able to safely determine your condition over the phone nor are we able to give sound medical advice over the phone. For these safety reasons, if you call for medical advice we will ask you to come to the ED for further evaluation. 3. If you have any questions regarding these discharge instructions please call the ED at [phone]. SAFETY INFORMATION: In the interest of safety, wellness, and injury prevention; we encourage you to wear your sealbelt, if you smoke; quite smoking, and we encourage family to use a protective helmet for bicycling and other sporting events that present an increased risk for head injury. IF YOUR SYMPTOMS WORSEN OR NEW SYMPTOMS DEVELOP, OR YOU HAVE CONCERNS ABOUT YOUR CONDITION; OR IF YOUR CONDITION WORSENS WHILE YOU ARE WAITING FOR YOUR FOLLOW UP SUSHMA OINTMENT; EITHER CONTACT YOUR PRIMARY CARE DOCTOR, THE PHYSICIAN WHOSE NAME AND NUMBER YOU WERE GIVEN, OR RETURN TO THE ED IMMEDIATELY. Problem Qualifiers Primary Impression: Migraine Migraine type: without aura Status migrainosus presence: without status migrainosus Intractability: not intractable Qualified Codes: G43.009 - Migraine without aura, not intractable, without status migrainosus ROZ BAUTISTA APRN Jun 24, 2020 20:30
== END 2020-06-24 20:45 | disposition home or self-care (01) ==
LOC: ER 20:13
DX: G43.909 Migraine, unspecified, not intractable, without status migrainosus (principal); Z88.5 Allergy status to narcotic agent
CPT/HCPCS: 96372; 99283; J1885

== ENCOUNTER → 2020-07-01 | Outpatient (CLI) | payer OTHER ==
[2020-06-24 20:22] VITALS: BP 143/93
--- NOTE | 2020-07-07 08:13 | RAD ---
DATE: 07/01/2020 9:32 AM EXAM: MAMMO PASCUAL SCREENING BILATERAL HISTORY: Screening COMPARISON: 07/19/2018 Bilateral CC and MLO views of the breasts were performed. Bilateral breast tomosynthesis was performed in CC and MLO projections. This study was interpreted with the benefit of Computerized Aided Detection (CAD). FINDINGS: Breast Density: HETERO The breast parenchyma Is heterogeneously dense, which could reduce sensitivity of mammography. Breast parenchyma level C No suspicious masses, microcalcifications or architectural distortion is present to suggest malignancy in either breast. The visualized axillae are unremarkable. IMPRESSION: No mammographic evidence of malignancy. BI-RADS CATEGORY: 1 NEGATIVE RECOMMENDED FOLLOW-UP: 12M 12 MONTH FOLLOW-UP Annual screening mammography is recommended, unless clinically indicated sooner based on symptoms or change in physical exam. PQRS compliance statement: Patient information was entered into a reminder system with a target due date for the next mammogram. Mammography is a sensitive method for finding small breast cancers, but it does not detect them all and is not a substitute for careful clinical examination. A negative mammogram does not negate a clinically suspicious finding and should not result in delay in biopsying a clinically suspicious abnormality. "Our facility is accredited by the [employer] Mammography Program."
== END ==
LOC: MAMMO 11:00
PROVIDERS: ATTEND Family Medicine
DX: Z12.31 Encounter for screening mammogram for malignant neoplasm of breast (principal)
CPT/HCPCS: 77063; 77067

== ENCOUNTER → 2020-09-28 | Outpatient (CLI) | payer OTHER ==
[2020-09-28 10:35] LABS: BASO # 0.1 x10^3/uL (0.0-0.2); BASO % 1 % (0-3); EOS # 0.1 x10^3/uL (0.0-0.7); EOS % 1 % (0-3); HEMATOCRIT 41.1 % (36.0-47.0); LYMPH # 3.4 x10^3/uL (1.0-4.8); LYMPH % 39 % (24-48); MEAN CORPUSCULAR HEMOGLOBIN 31 pg (25-35); MEAN CORPUSCULAR HGB CONC 34 g/dL (31-37); MEAN CORPUSCULAR VOLUME 90 fL (79-100); MONO # 0.7 x10^3/uL (0.0-1.1); MONO % 8 % (0-9); NEUT # 4.4 x10^3uL (1.8-7.7); NEUT % 51 % (31-73); PLATELET COUNT 324 x10^3/uL (140-400); RED BLOOD COUNT 4.58 x10^6/uL (3.50-5.40); RED CELL DISTRIBUTION WIDTH 13.3 % (11.5-14.5); WHITE BLOOD COUNT 8.6 x10^3/uL (4.0-11.0)
[2020-09-28 10:47] LABS: ALBUMIN 4.5 g/dL (3.4-5.0); ALBUMIN/GLOBULIN RATIO 1.1 (1.0-1.7); CALCIUM 9.5 mg/dL (8.5-10.1); CREATININE 0.8 mg/dL (0.6-1.0); GFR 77.9; POTASSIUM 4.1 mmol/L (3.5-5.1); TOTAL BILIRUBIN 0.2 mg/dL (0.2-1.0); TOTAL PROTEIN 8.5 g/dL (6.4-8.2)
[2020-09-28 12:18] LABS: SEDIMENTATION RATE 15 (0-25)
[2020-09-28 21:56] LABS: THYROID STIM HORMONE (TSH) 2.3 uIU/mL (0.358-3.740)
[2020-09-29 02:09] LABS: HEMOGLOBIN A1C 5.3 % (4.8-5.6); RHEUMATOID FACTOR <10.0 IU/mL (0.0-13.9)
[2020-09-29 10:11] LABS: LUTEINIZING HORMONE 5.2 mIU/mL (.); PROGESTERONE 15.6 ng/mL (.)
[2020-09-30 20:14] LABS: ANA INTERP Positive (.)
[2020-10-01 08:17] LABS: TESTOSTERONE FREE <.05 ng/dL (0.10-0.85); TESTOSTERONE TOTAL <3 ng/dL (4-50)
== END ==
LOC: LAB 09:17
PROVIDERS: ATTEND Family Medicine
DX: Z00.00 Encounter for general adult medical examination without abnormal findings (principal); R76.8 Other specified abnormal immunological findings in serum; R22.32 Localized swelling, mass and lump, left upper limb
CPT/HCPCS: 36415; 80053; 80061; 82607; 82652; 82670; 83001; 83002; 83036; 84144; 84402; 84403; 84443; 85025; 85651; 86038; 86431

== ENCOUNTER 2020-10-26 06:23 | Emergency (ER) | payer OTHER ==
[~2020-10-26] VITALS: Ht 170.2 cm; Wt 63.3 kg
[2020-10-26 06:43] VITALS: BP 114/78
--- NOTE | 2020-10-26 06:49 | PHYS DOC ---
Past History Past Medical History: Migraines, Other Additional Past Medical Histor: endometrosis, auto immune d/o Past Surgical History: Cholecystectomy, Tubal ligation Alcohol Use: None Drug Use: None Adult General Chief Complaint Chief Complaint: OTHER COMPLAINTS HPI HPI Patient is a [age] year old [sex] who presents with [] Review of Systems Review of Systems Fourteen body systems of review of systems have been reviewed. See HPI for pertinent positives and negative responses, other alejandra all other systems are negative, non-pertinent or non-contributory Allergies Allergies Allergies Coded Allergies Type Severity Reaction Last Updated Verified codeine Allergy Severe Anaphylaxis 06/24/20 Yes hydromorphone Allergy Severe Rash 06/24/20 Yes morphine Allergy Severe Rash 06/24/20 Yes Physical Exam Physical Exam Constitutional: Well developed, well nourished, no acute distress, non-toxic appearance. HENT: Normocephalic, atraumatic, bilateral external ears normal, oropharynx moist, no oral exudates, nose normal. Eyes: PERRLA, EOMI, conjunctiva normal, no discharge. Neck: Normal range of motion, no tenderness, supple, no stridor. Cardiovascular: Heart rate regular per monitor Lungs & Thorax: No respiratory distress or accessory muscle use, bilateral chest rise Abdomen: Abdomen soft, non-tender, bowel sounds present in all quadrants, no guarding or rebound, nonacute abdomen. Skin: Warm, dry, no erythema, no rash. Back: No tenderness, no CVA tenderness. Extremities: No tenderness, no cyanosis, no clubbing, ROM intact, no edema. Neurologic: Alert and oriented X 3, grossly normal motor & sensory function, no focal deficits noted. Psychologic: Affect normal, judgement normal, mood normal. Current Patient Data Vital Signs Vital Signs Date Time Temp Pulse Resp B/P (MAP) Pulse Ox O2 Delivery O2 Flow Rate FiO2 10/26/20 06:43 97.9 84 18 114/78 (90) 99 Room Air EKG EKG [] Radiology/Procedures Radiology/Procedures [] Heart Score Risk Factors: Risk Factors: DM, Current or recent (<one month) smoker, HTN, HLP, family history of CAD, obesity. Risk Scores: Risk Factors: DM, Current or recent (<one month) smoker, HTN, HLP, family history of CAD, obesity. Course & Med Decision Making Course & Med Decision Making Pertinent Labs and Imaging studies reviewed. (See chart for details) [] Dragon Disclaimer Dragon Disclaimer This electronic medical record was generated, in whole or in part, using a voice recognition dictation system. Departure Departure: Impression: Primary Impression: Travel advice encounter Disposition: HOME / SELF CARE / HOMELESS Condition: STABLE Referrals: GELA BERNSTEIN (PCP) Scripts Methylprednisolone (MEDROL) 4 Mg Tab.ds.pk 1 PKG PO UD for ASTHMA, #1 PKG Prov: MONSERRAT PLATA DO 10/26/20 Ondansetron (ONDANSETRON ODT) 4 Mg Tab.rapdis 1 TAB PO PRN Q6-8HRS for NAUSEA, #16 TAB Prov: MONSERRAT PLATA DO 10/26/20 Azithromycin (AZITHROMYCIN PACKET) 1 Gm Packet 1 PACKET PO ONCE for DIARRHEA for 1 Day, #1 PACKET 0 Refills dissolve in 2 ounces of water Prov: MONSERRAT PLATA DO 10/26/20 MONSERRAT PLATA DO Oct 26, 2020 06:49
[2020-10-26] MEDS ORDERED: AZIT1PAC9 PO (07:04)
[2020-10-26] MEDS ORDERED: ONDA4TAB12 PO (07:04)
[2020-10-26] MEDS ORDERED: METH4TAB2 PO (07:04)
== END 2020-10-26 07:07 | disposition home or self-care (01) ==
LOC: ER 06:23
DX: G43.909 Migraine, unspecified, not intractable, without status migrainosus (principal); Z71.84 Encounter for health counseling related to travel; Z88.6 Allergy status to analgesic agent; Z88.5 Allergy status to narcotic agent; Z90.49 Acquired absence of other specified parts of digestive tract; Z98.51 Tubal ligation status; Z20.822 Contact with and (suspected) exposure to COVID-19
CPT/HCPCS: 99283; C9803; U0003

== ENCOUNTER 2021-04-26 08:53 | Emergency (ER) | payer OTHER ==
[~2021-04-26] VITALS: Ht 170.2 cm; Wt 63.0 kg
[~2021-04-26 08:53] MED LIST changes: +AZIT1PAC9 PO; +METH4TAB2 PO; +ONDA4TAB12 PO
[2021-04-26 08:55] VITALS: BP 133/86
[2021-04-26] MEDS ORDERED: ONDANSETRON ODT 4 MG TAB.RAPDIS PO ONE (09:30)
[2021-04-26] MEDS ORDERED: ONDA4TAB12 PO (09:30)
--- NOTE | 2021-04-26 09:30 | PHYS DOC ---
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 The patient was helping to prepare a patient and during the cleanup process, she accidentally scratched her left index finger with an IO needle. She denies any other injuries. She would like to do prophylactic antiviral treatment. She has no other complaints this time. Review of Systems: Review of Systems: Constitutional: Denies fever or chills Eyes: Denies change in visual acuity HENT: Denies nasal congestion or sore throat Respiratory: Denies cough or shortness of breath Cardiovascular: Denies chest pain or edema GI: Denies abdominal pain, nausea, vomiting, bloody stools or diarrhea : Denies dysuria Musculoskeletal: Denies back pain or joint pain Integument: Needlestick left index finger Neurologic: Denies headache, focal weakness or sensory changes Endocrine: Denies polyuria or polydipsia Lymphatic: Denies swollen glands Psychiatric: Denies depression or anxiety Allergies: Allergies: Allergies Coded Allergies Type Severity Reaction Last Updated Verified hydromorphone Allergy Severe Rash 04/26/21 Yes morphine Allergy Severe Rash 04/26/21 Yes hydrocodone Allergy Unknown Anaphylaxis 04/26/21 Yes Physical Exam: PE: Constitutional: Well developed, well nourished, no acute distress, non-toxic appearance. [] HENT: Normocephalic, atraumatic, bilateral external ears normal, oropharynx moist, no oral exudates, nose normal. [] Eyes: PERRLA, EOMI, conjunctiva normal, no discharge. [] Neck: Normal range of motion, no tenderness, supple, no stridor. [] Cardiovascular:Heart rate regular rhythm, no murmur [] Lungs & Thorax: Bilateral breath sounds clear to auscultation [] Abdomen: Bowel sounds normal, soft, no tenderness, no masses, no pulsatile masses. [] Skin: Small laceration left index finger consistent with needlestick. [] Back: No tenderness, no CVA tenderness. [] Extremities: No tenderness, no cyanosis, no clubbing, ROM intact, no edema. [] Neurologic: Alert and oriented X 3, normal motor function, normal sensory function, no focal deficits noted. [] Psychologic: Affect normal, judgement normal, mood normal. [] Current Patient Data: Vital Signs: Vital Signs Date Time Temp Pulse Resp B/P (MAP) Pulse Ox O2 Delivery O2 Flow Rate FiO2 04/26/21 08:55 98.3 90 16 133/86 (102) 100 EKG: EKG: [] Radiology/Procedures: Radiology/Procedures: [] Heart Score: C/O Chest Pain: N/A Risk Factors: Risk Factors: DM, Current or recent (<one month) smoker, HTN, HLP, family history of CAD, obesity. Risk Scores: Score 0 - 3: 2.5% MACE over next 6 weeks - Discharge Home Score 4 - 6: 20.3% MACE over next 6 weeks - Admit for Clinical Observation Score 7 - 10: 72.7% MACE over next 6 weeks - Early Invasive Strategies Course & Med Decision Making: Course & Med Decision Making Pertinent Labs and Imaging studies reviewed. (See chart for details) The patient's wound was thoroughly irrigated. She has elected for antiviral therapy. Those medications have been ordered and started in the emergency room. I will send additional prescription for Zofran to her pharmacy. She is stable for discharge at this time. [] Dragon Disclaimer: Jessica Disclaimer: This electronic medical record was generated, in whole or in part, using a voice recognition dictation system. Departure Departure: Impression: Primary Impression: Needle stick injury of hand Disposition: 01 HOME / SELF CARE / HOMELESS Condition: STABLE Referrals: GELA BERNSTEIN (PCP) Patient Instructions: Needle Stick Injury Scripts Ondansetron (ONDANSETRON ODT) 4 Mg Tab.rapdis 1 TAB PO PRN Q6-8HRS PRN for VOMITING, #16 TAB Prov: EMEKA HERNANDEZ DO 04/26/21 EMEKA HERNANDEZ DO Apr 26, 2021 09:30
[2021-04-26] MEDS ORDERED: RALTEGRAVIR 400 MG TABLET. PO SCH (21:00)
[2021-04-27] MEDS ORDERED: EMTRICITAB/TENOFOVIR 200/300MG TABLET. PO SCH (09:00)
== END 2021-04-26 09:40 | disposition home or self-care (01) ==
LOC: ER 08:53
DX: S61.211A Laceration without foreign body of left index finger without damage to nail, initial encounter (principal); G43.909 Migraine, unspecified, not intractable, without status migrainosus; Z88.5 Allergy status to narcotic agent; W27.3XXA Contact with needle (sewing), initial encounter; Y93.89 Activity, other specified; Y92.89 Other specified places as the place of occurrence of the external cause; Y99.8 Other external cause status
CPT/HCPCS: 99284; Q0162